=== PATIENT | female | born 1995 | race Caucasian/White ===

== ENCOUNTER 2016-11-09 21:29 | Emergency (ER) | payer MEDICAID ==
[2016-11-09 21:35] VITALS: RESP 16; TEMP 98.6; O2SAT 97
[2016-11-09] MEDS ORDERED: TDAP ADULT 0.5 ML INJ (BOOSTRIX) IM ONE (22:32)
[2016-11-09] MEDS ORDERED: AMOXICILLIN/CLAVULANATE POT 875/125 MG TAB PO ONE (23:20)
--- NOTE | 2016-11-09 23:20 | EDPHY ---
H & P Stated Complaint: dog bite L upper lip & midline lower lip Time Seen by Provider: 11/09/16 22:11 HPI/ROS: HPI The patient presents after dog bite about 1 hour prior to arrival of her face. The patient was checking the tag of a dog on the street and the dog bit her in the face. She was able to see that the dog had its rabies vaccinations, though she did not know the dog. She is not sure of her last tetanus shot.. REVIEW OF SYSTEMS Constitutional: No fever, no chills. Eyes: No discharge. ENT: No sore throat. Musculoskeletal: No back pain. Skin: No rashes. Neurological: No headache. PMHx: Healthy Soc Hx: Housed PHYSICAL General Appearance: Alert, no distress Eyes: Pupils equal and round no pallor or injection ENT, Mouth: Left upper lip has 1 and 0.5 cm laceration involving the vermilion border, lower lip has a 5 mm laceration at the midline Respiratory: Breathing comfortably Neurological: A&O, moves all extremities Skin: Warm and dry, no rashes Musculoskeletal: Neck is supple non tender Extremities: symmetrical, full range of motion Psychiatric: Patient is oriented X 3, there is no agitation Source: Patient Exam Limitations: No limitations - Personal History Current Tetanus/Diphtheria Vaccine: Unsure Current Tetanus Diphtheria and Acellular Pertussis (TDAP): Unsure - Medical/Surgical History Hx Asthma: No Hx Chronic Respiratory Disease: No Hx Diabetes: No Hx Cardiac Disease: No Hx Renal Disease: No Hx Cirrhosis: No Hx Alcoholism: No Hx HIV/AIDS: No Hx Splenectomy or Spleen Trauma: No Other PMH: denies - Social History Smoking Status: Never smoked Constitutional: Initial Vital Signs Temperature (C) 37 C 11/09/16 21:32 Heart Rate 75 11/09/16 21:32 Respiratory Rate 16 11/09/16 21:32 Blood Pressure 117/85 H 11/09/16 21:32 O2 Sat (%) 97 11/09/16 21:32 O2 Delivery Mode Room Air Allergies/Adverse Reactions: No Known Allergies Allergy (Unverified 11/09/16 21:36) Home Medications: Medication Instructions Recorded Amoxicillin/Clavulanate Pot 875 mg PO BID #14 tab 11/09/16 [Augmentin 875 MG TAB (*)] Medical Decision Making Procedures: LACERATION REPAIR Procedure: Laceration repair. Verbal consent was obtained from the patient. The linear 1.5 and 0.5 cm laceration on the upper lip involving the vermilion border, and lower lip was anesthetized using lidocaine. The wound was [scrubbed], draped and explored to its base with a gloved finger. [There were no deep structures involved.] [No tendon injury was identified.] . The wound was repaired with a combination of silk and nylon suture. The wound repair was complex. The procedure was performed by CARMELITA Charles. Differential Diagnosis: This is a 21-year-old female, bit by a dog about 1 hour prior to arrival sustaining lacerations to her upper and lower lips. These are not through and through. The dog had its rabies vaccinations. Plan for laceration repair given location of lacerations on her face and importance for proper cosmesis. I have told her that there is high risk of infection here and she needs to keep the wounds clean as possible. I will discharge her with Augmentin. I will update her tetanus vaccine. She can return in 5 days to have her sutures removed. - Data Points Medications Given: Discontinued Medications Amoxicillin/Clavulanate Potassium (Augmentin 875mg) 875 mg PO EDNOW ONE PRN Reason: Protocol Stop: 11/09/16 23:21 Last Admin: 11/09/16 23:47 Dose: 875 mg Diphtheria/Tetanus/Acell Pertussis (Boostrix) 0.5 ml IM .ONCE ONE Stop: 11/09/16 22:33 Last Admin: 11/09/16 22:44 Dose: 0.5 ml Departure - Departure Disposition: Home, Routine, Self-Care Clinical Impression: Dog bite Qualifiers: Encounter type: initial encounter Qualified Code(s): W54.0XXA - Bitten by dog, initial encounter Lip laceration Qualifiers: Encounter type: initial encounter Qualified Code(s): S01.511A - Laceration without foreign body of lip, initial encounter Condition: Good Instructions: Animal Bite (ED), Care For Your Stitches (ED), Facial Laceration (ED) Additional Instructions: Please return to the emergency room if there is any redness, swelling, drainage from her wounds. Please take the antibiotic as prescribed. The sutures should be removed in 5 days, you can return to the ER for this or your primary care doctor can remove them. Referrals: [facility],. [Clinic] - As per Instructions Prescriptions: Amoxicillin/Clavulanate Pot [Augmentin 875 MG TAB (*)] 875 mg PO BID #14 tab
[2016-11-10 00:02] VITALS: BP 116/82; PULSE 74
== END 2016-11-15 14:38 | disposition home or self-care (01) ==
PROC: 0CQ1XZZ Repair Lower Lip, External Approach (ICD-10-PCS; principal; 2016-11-09)
PROC: 3E0234Z Introduction of Serum, Toxoid and Vaccine into Muscle, Percutaneous Approach (ICD-10-PCS; principal; 2016-11-09)
PROC: 0CQ0XZZ Repair Upper Lip, External Approach (ICD-10-PCS; principal; 2016-11-09)
DX: S01.511A Laceration without foreign body of lip, initial encounter (principal); Z23 Encounter for immunization; W54.0XXA Bitten by dog, initial encounter; Y92.410 Unspecified street and highway as the place of occurrence of the external cause